=== PATIENT | female | born 1990 | race Caucasian/White ===

== ENCOUNTER 2017-10-10 21:44 | Emergency (ER) | payer BC ==
[~2017-10-10] VITALS: Ht 175.3 cm; Wt 67.9 kg
[~2017-10-10 21:44] MED LIST: BIRTH CONTROL
[2017-10-10 22:06] LABS: HEMATOCRIT 41.6 % (36.0-46.0); HEMOGLOBIN 13.8 G/DL (11.9-15.5); MCH 29.6 PG (29.0-34.0); MCHC 33.2 G/DL (30.0-36.0); MCV 89.1 FL (83-99); PLATELET COUNT 278 K/uL (156-360); RBC DIS.WIDTH-CV 11.9 % (11.8-14.6); RBC DIS.WIDTH-SD 38.5 % (39-53); RED BLOOD COUNT 4.67 M/uL (3.80-5.20); WHITE BLOOD COUNT 10.8 K/uL (4.1-10.2)
[2017-10-10 22:32] LABS: CHLORIDE 107 mEq/L (99-109); POTASSIUM 5.1 mEq/L (3.7-5.4); SODIUM 139 mEq/L (136-147)
[2017-10-10 22:34] LABS: GLUCOSE 91 mg/dL (70-99)
[2017-10-10 22:38] LABS: CREATININE 0.7 mg/dL (0.6-1.3); GFR ESTIMATE (CALCULATED) > 59 mL/min/
[2017-10-10 22:39] LABS: UREA NITROGEN (BUN) 14 mg/dL (9-23)
[2017-10-10 22:41] LABS: ALBUMIN 4.2 g/dL (3.2-4.8)
[2017-10-10 22:42] LABS: APPEARANCE CLEAR ((CLEAR)); BILIRUBIN NEGATIVE; BLOOD NEGATIVE; COLOR STRAW ((YELLOW)); GLUCOSE (STRIP) NEGATIVE; KETONES NEGATIVE; LEUKOCYTES NEGATIVE; NITRITE NEGATIVE; PROTEIN (STRIP) NEGATIVE; SPECIFIC GRAVITY 1.005 (1.000-1.030); UCUL ADDED? NO; UROBILINOGEN 0.2 MG/DL (0.2-1.0)
[2017-10-10 22:44] LABS: TOTAL PROTEIN 6.6 g/dL (6.4-8.3)
[2017-10-10 22:46] LABS: TOTAL BILIRUBIN 0.3 mg/dL (0.0-1.0)
[2017-10-10 22:47] LABS: ALKALINE PHOSPHATASE 72 IU/L (3-129); QUANTITATIVE HCG < 4.0 MIU/ML
[2017-10-10 22:49] LABS: AST (GOT) 16 IU/L (2-34)
[2017-10-10 22:50] LABS: ALT (GPT) 9 IU/L (3-49); DIRECT BILIRUBIN 0.1 mg/dL (0.0-0.3)
[2017-10-11] MEDS ORDERED: LIDODERM 5% P1 PATCH TD (00:58)
[2017-10-11] MEDS ORDERED: FLEXERIL10 MG PO (00:58)
[2017-10-11] MEDS ORDERED: NAPROXEN500 MG PO (00:58)
[2017-10-11 01:04] VITALS: BP 130/85
== END 2017-10-11 01:06 | disposition home or self-care (01) ==
LOC: EME 21:44
DX: R10.9 Unspecified abdominal pain (principal); Z87.442 Personal history of urinary calculi; Z87.440 Personal history of urinary (tract) infections; F17.200 Nicotine dependence, unspecified, uncomplicated
CPT/HCPCS: 74176; 80048; 80076; 81003; 84702; 85027; 99281; 99285; J1885